=== PATIENT | male | born 1975 | race Caucasian/White ===

== ENCOUNTER 2017-01-11 12:51 | Emergency (ER) | payer MEDICARE ==
[2017-01-11 13:57] LABS: HEMOGLOBIN 15.4 gm/dl (14.0-17.5); RED BLOOD COUNT 5.06 M/UL (4.20-5.50); WHITE BLOOD COUNT 10.1 K/UL (4.5-11.0)
[2017-01-11 14:16] LABS: BUN/CREATININE RATIO 14 (0-10)
[2017-04-12] MEDS ORDERED: KLONOPIN TAB 00.5 MG PO (23:48)
[2017-04-12] MEDS ORDERED: CATAPRES 0.1MG0.1 MG PO (23:49)
[2017-04-12] MEDS ORDERED: NORCO 10-325 T1 EACH PO (23:49)
[2017-04-12] MEDS ORDERED: TRAMADOL HCL50 MG PO (23:50)
[2017-04-12] MEDS ORDERED: LOPRESSOR100 MG PO (23:50)
[2017-04-12] MEDS ORDERED: PLAVIX 75 MG TA75 MG PO (23:50)
[2017-04-12] MEDS ORDERED: ASPIRIN81 MG PO (23:51)
== END 2017-01-11 18:50 | disposition home or self-care (01) ==
LOC: ER1 12:51
PROVIDERS: Physician Assistant
DX: N20.0 Calculus of kidney (principal); R31.9 Hematuria, unspecified; I10 Essential (primary) hypertension; F17.210 Nicotine dependence, cigarettes, uncomplicated; Z88.6 Allergy status to analgesic agent; Z88.8 Allergy status to other drugs, medicaments and biological substances; Z87.442 Personal history of urinary calculi; Z79.899 Other long term (current) drug therapy
CPT/HCPCS: 36415; 80053; 81001; 83690; 85025; 96372; 96374; 96375; 99284; J2060; J2270; J2405; J7030

== ENCOUNTER 2017-01-12 02:20 | Emergency (ER) | payer MEDICARE ==
[2017-01-12 03:50] LABS: HEMOGLOBIN 14.3 gm/dl (14.0-17.5); RED BLOOD COUNT 4.74 M/UL (4.20-5.50); WHITE BLOOD COUNT 9.2 K/UL (4.5-11.0)
[2017-01-12 04:10] LABS: BUN/CREATININE RATIO 8 (0-10)
[2017-04-12] MEDS ORDERED: KLONOPIN TAB 00.5 MG PO (23:48)
[2017-04-12] MEDS ORDERED: CATAPRES 0.1MG0.1 MG PO (23:49)
[2017-04-12] MEDS ORDERED: NORCO 10-325 T1 EACH PO (23:49)
[2017-04-12] MEDS ORDERED: LOPRESSOR100 MG PO (23:50)
[2017-04-12] MEDS ORDERED: TRAMADOL HCL50 MG PO (23:50)
[2017-04-12] MEDS ORDERED: PLAVIX 75 MG TA75 MG PO (23:50)
[2017-04-12] MEDS ORDERED: ASPIRIN81 MG PO (23:51)
== END 2017-01-12 05:21 | disposition home or self-care (01) ==
LOC: ER1 02:20
PROVIDERS: Physician Assistant
DX: R10.9 Unspecified abdominal pain (principal); I21.3 ST elevation (STEMI) myocardial infarction of unspecified site; I25.10 Atherosclerotic heart disease of native coronary artery without angina pectoris; F17.210 Nicotine dependence, cigarettes, uncomplicated; Z95.5 Presence of coronary angioplasty implant and graft; Z88.5 Allergy status to narcotic agent; Z88.8 Allergy status to other drugs, medicaments and biological substances; Z90.49 Acquired absence of other specified parts of digestive tract; Z87.442 Personal history of urinary calculi
CPT/HCPCS: 36415; 80053; 81001; 85025; 87086; 96374; 96375; 99284; J2270; J2405

== ENCOUNTER 2017-02-12 18:21 | Emergency (ER) | payer MEDICARE ==
[2017-02-12 19:36] LABS: HEMOGLOBIN 15.2 gm/dl (14.0-17.5); RED BLOOD COUNT 4.95 M/UL (4.20-5.50); WHITE BLOOD COUNT 8.8 K/UL (4.5-11.0)
[2017-02-12 20:08] LABS: BUN/CREATININE RATIO 12 (0-10)
[2017-04-12] MEDS ORDERED: KLONOPIN TAB 00.5 MG PO (23:48)
[2017-04-12] MEDS ORDERED: CATAPRES 0.1MG0.1 MG PO (23:49)
[2017-04-12] MEDS ORDERED: NORCO 10-325 T1 EACH PO (23:49)
[2017-04-12] MEDS ORDERED: TRAMADOL HCL50 MG PO (23:50)
[2017-04-12] MEDS ORDERED: PLAVIX 75 MG TA75 MG PO (23:50)
[2017-04-12] MEDS ORDERED: LOPRESSOR100 MG PO (23:50)
[2017-04-12] MEDS ORDERED: ASPIRIN81 MG PO (23:51)
== END 2017-02-12 21:34 | disposition home or self-care (01) ==
LOC: ER1 18:21
PROVIDERS: Physician Assistant
DX: S16.1XXA Strain of muscle, fascia and tendon at neck level, initial encounter (principal); S39.012A Strain of muscle, fascia and tendon of lower back, initial encounter; I11.9 Hypertensive heart disease without heart failure; F17.210 Nicotine dependence, cigarettes, uncomplicated; Z85.118 Personal history of other malignant neoplasm of bronchus and lung; F41.9 Anxiety disorder, unspecified; Z88.5 Allergy status to narcotic agent; Z88.8 Allergy status to other drugs, medicaments and biological substances; Y09 Assault by unspecified means
CPT/HCPCS: 36415; 70450; 71260; 72070; 72125; 72131; 80053; 81001; 82550; 82553; 83690; 83874; 84484; 85025; 93005; 96360; 99284; J7050; Q9962

== ENCOUNTER 2017-05-14 17:45 | Emergency (ER) | payer MEDICARE ==
[~2017-05-14 17:45] MED LIST: ASPIRIN81 MG PO; CATAPRES 0.1MG0.1 MG PO; KLONOPIN TAB 00.5 MG PO; LOPRESSOR100 MG PO; NORCO 10-325 T1 EACH PO; PLAVIX 75 MG TA75 MG PO; TRAMADOL HCL50 MG PO
== END 2017-05-14 23:56 | disposition home or self-care (01) ==
LOC: ER1 17:45
DX: S39.012A Strain of muscle, fascia and tendon of lower back, initial encounter (principal); G89.29 Other chronic pain; R45.4 Irritability and anger; I10 Essential (primary) hypertension; F17.210 Nicotine dependence, cigarettes, uncomplicated; Z88.5 Allergy status to narcotic agent; Z95.1 Presence of aortocoronary bypass graft; Z88.8 Allergy status to other drugs, medicaments and biological substances; Z79.891 Long term (current) use of opiate analgesic; W18.09XA Striking against other object with subsequent fall, initial encounter; Y93.01 Activity, walking, marching and hiking; Y92.009 Unspecified place in unspecified non-institutional (private) residence as the place of occurrence of the external cause
CPT/HCPCS: 72131; 99283; J1100